=== PATIENT | female | born 1965 | race Two or more races ===

== ENCOUNTER 2024-08-05 10:45 | Outpatient (RCR) | payer MEDICAID, SELFPAY | END 2024-08-22 23:59 | disposition home or self-care (01) | LOC: SCTC 10:45 | PROVIDERS: PCP Internal Medicine; Referring Provider Internal Medicine; Visit Provider Nurse Practitioner Family | DX: Z76.89 Persons encountering health services in other specified circumstances (principal); Z80.41 Family history of malignant neoplasm of ovary; Z85.42 Personal history of malignant neoplasm of other parts of uterus | CPT/HCPCS: 99212; G0463 ==

== ENCOUNTER → 2025-03-23 | Outpatient (BNVA) | payer MEDICAID, SELFPAY | END | disposition home or self-care (01) | PROVIDERS: PCP Internal Medicine; Referring Provider Internal Medicine; Visit Provider Urology | DX: R31.9 Hematuria, unspecified (principal); R32 Unspecified urinary incontinence; E66.9 Obesity, unspecified; Z68.33 Body mass index [BMI] 33.0-33.9, adult | CPT/HCPCS: 81003; 99212; G0463 ==